=== PATIENT | male | born 1970 | race Caucasian/White ===

== ENCOUNTER 2023-09-16 08:21 | Outpatient (CLI) | payer OTHER, SELFPAY | END 2023-09-16 08:22 | disposition home or self-care (01) | PROVIDERS: PCP Nurse Practitioner Family; Visit Provider Nurse Practitioner Family | DX: Z13.220 Encounter for screening for lipoid disorders (principal); Z12.5 Encounter for screening for malignant neoplasm of prostate; Z13.0 Encounter for screening for diseases of the blood and blood-forming organs and certain disorders involving the immune mechanism; Z13.228 Encounter for screening for other metabolic disorders | CPT/HCPCS: 80053; 80061; 85025; G0103 ==

== ENCOUNTER 2023-10-18 09:06 | Outpatient (CLI) | payer OTHER, SELFPAY ==
--- NOTE | 2023-10-18 10:13 | W.ANESCHARGE ---
Anesthesia Charges Start Date/Time Anesthesia Start Date: 10/18/23 Anesthesia Start Time: 09:40 Stop Date/Time Anesthesia Stop Date: 10/18/23 Anesthesia Stop Time: 10:22
--- NOTE | 2023-10-18 10:26 | W.ANESCHARGE ---
Anesthesia Charges Start Date/Time Anesthesia Start Date: 10/18/23 Anesthesia Start Time: 09:40 Stop Date/Time Anesthesia Stop Date: 10/18/23 Anesthesia Stop Time: 10:22
== END 2023-10-18 09:07 | disposition home or self-care (01) ==
LOC: OP CLINIC 09:07
PROVIDERS: PCP Nurse Practitioner Family; Visit Provider Internal Medicine
DX: Z12.11 Encounter for screening for malignant neoplasm of colon (principal)
CPT/HCPCS: 00811; 00812; 45378; J2704